=== PATIENT | female | born 1995 | race Hispanic/Latino ===

== ENCOUNTER 2018-02-04 16:19 | Emergency (ER) | payer SELFPAY ==
[~2018-02-04] VITALS: Ht 167.6 cm; Wt 71.7 kg
[2018-02-04] MEDS ORDERED: IBUPROFEN 600 MG TAB PO STA (16:38)
--- NOTE | 2018-02-04 17:41 | Diagnostic Imaging Report ---
PROCEDURE:HAND RIGHT 3 VIEWS AP \T\ LAT COMPARISON:None. INDICATIONS:DISLOCATED RIGHT THUMB FINDINGS: First carpometacarpal joint demonstrates subluxation of the thumb without dislocation (possibly relocated.). No osseous fragments. There are no fractures, dislocations, lytic or blastic lesions. The bones are well-mineralized. The soft-tissues are unremarkable. CONCLUSION: First carpometacarpal joint demonstrates subluxation of the thumb without dislocation (possibly relocated.). No osseous fragments Dictated by: Shadi Downey M.D. on 02/04/2018 at 17:41 Electronically approved by: Shadi Downey M.D. on 02/04/2018 at 17:41
[2018-02-04 18:27] VITALS: BP 113/55
== END 2018-02-04 18:05 | disposition home or self-care (01) ==
LOC: ER 16:19
DX: S63.641A Sprain of metacarpophalangeal joint of right thumb, initial encounter (principal); Y92.39 Other specified sports and athletic area as the place of occurrence of the external cause
CPT/HCPCS: 99283

== ENCOUNTER 2018-05-18 20:55 | Emergency (ER) | payer SELFPAY ==
[~2018-05-18] VITALS: Ht 167.6 cm; Wt 71.7 kg
== END 2018-05-18 22:24 | disposition left against medical advice (07) ==
LOC: ER 20:55
DX: R10.13 Epigastric pain (principal)
CPT/HCPCS: 81025